=== PATIENT | male | born 1950 | race Caucasian/White ===

== ENCOUNTER 2017-09-25 09:33 | Day surgery (SDC) | payer OTHER ==
[~2017-09-25] VITALS: Ht 177.8 cm; Wt 104.3 kg
[~2017-09-25 09:33] MED LIST: ALBU90OI61 INH; AZIT250 PO; CEPH500 PO; DIPH50 PO; DOXA2 PO; HYDR1TAB94 PO; LEVFLO500 PO; Naprosyn500 MG PO; Norco 5-325 Ta1 EACH PO; PROCODE120 PO; Prednisone20 MG PO
== END 2017-09-25 23:09 | disposition home or self-care (01) ==
LOC: ORSCMMR 09:33
PROVIDERS: Internal Medicine Gastroenterology
PROC: 0DBM8ZX Excision of Descending Colon, Via Natural or Artificial Opening Endoscopic, Diagnostic (ICD-10-PCS; principal; 2017-09-25 11:00)
PROC: 0DBN8ZX Excision of Sigmoid Colon, Via Natural or Artificial Opening Endoscopic, Diagnostic (ICD-10-PCS; principal; 2017-09-25 11:00)
PROC: 0DBK8ZX Excision of Ascending Colon, Via Natural or Artificial Opening Endoscopic, Diagnostic (ICD-10-PCS; principal; 2017-09-25 11:00)
DX: Z12.11 Encounter for screening for malignant neoplasm of colon (principal); D12.2 Benign neoplasm of ascending colon; D12.5 Benign neoplasm of sigmoid colon; K63.5 Polyp of colon; Z86.010 Personal history of colon polyps
CPT/HCPCS: 88305; J7120

== ENCOUNTER 2018-03-24 12:57 | Emergency (ER) | payer OTHER ==
[~2018-03-24] VITALS: Ht 175.3 cm; Wt 100.0 kg
== END 2018-03-24 13:21 | disposition home or self-care (01) ==
LOC: ER 12:57
DX: R20.2 Paresthesia of skin (principal); Z87.891 Personal history of nicotine dependence
CPT/HCPCS: 99283

== ENCOUNTER 2019-04-10 08:28 | Emergency (ER) | payer OTHER ==
[~2019-04-10] VITALS: Ht 172.7 cm; Wt 99.8 kg
[2019-04-10] MEDS ORDERED: Cleocin HCl300 MG PO (11:33)
== END 2019-04-10 11:36 | disposition home or self-care (01) ==
LOC: ER 08:28
DX: J02.9 Acute pharyngitis, unspecified (principal); L03.213 Periorbital cellulitis; Z87.891 Personal history of nicotine dependence
CPT/HCPCS: 87081; 87430; 96374; 99283-25; J1100

== ENCOUNTER 2019-05-24 09:41 | Emergency (ER) | payer OTHER ==
[~2019-05-24] VITALS: Ht 175.3 cm; Wt 97.5 kg
[~2019-05-24 09:41] MED LIST changes: +Cleocin HCl300 MG PO
[2019-05-24] MEDS ORDERED: IBUP400 PO (11:50)
[2019-05-24] MEDS ORDERED: Cyclobenzaprine5 MG PO (11:50)
== END 2019-05-24 11:56 | disposition home or self-care (01) ==
LOC: ER 09:41
DX: M54.2 Cervicalgia (principal); Z87.891 Personal history of nicotine dependence
CPT/HCPCS: 72125; 99283-25

== ENCOUNTER 2019-08-30 12:03 | Emergency (ER) | payer OTHER ==
[~2019-08-30] VITALS: Ht 175.3 cm; Wt 99.8 kg
[~2019-08-30 12:03] MED LIST changes: +Cyclobenzaprine5 MG PO; +IBUP400 PO
[2019-08-30] MEDS ORDERED: DICL75ER PO (13:24)
[2019-08-30] MEDS ORDERED: HYDR1TAB94 PO (13:24)
== END 2019-08-30 13:25 | disposition home or self-care (01) ==
LOC: ER 12:03
DX: M51.36 Other intervertebral disc degeneration, lumbar region (principal)
CPT/HCPCS: 72131; 99283-25

== ENCOUNTER 2020-07-25 12:38 | Emergency (ER) | payer OTHER ==
[~2020-07-25] VITALS: Ht 175.3 cm; Wt 95.2 kg
[~2020-07-25 12:38] MED LIST changes: +DICL75ER PO
== END 2020-07-25 14:38 | disposition home or self-care (01) ==
LOC: ER 12:38
DX: M26.622 Arthralgia of left temporomandibular joint (principal); Z87.891 Personal history of nicotine dependence
CPT/HCPCS: 99282

== ENCOUNTER 2020-09-30 07:51 | Day surgery (SDC) | payer OTHER ==
[~2020-09-30] VITALS: Ht 175.3 cm; Wt 94.4 kg
[~2020-09-30 07:51] MED LIST changes: +ATOR20 PO; +METF500 PO
--- NOTE | 2020-09-30 09:13 | NUR ---
Ambulatory in Day SurgeryPatient states colon prep results clear. History, Chart, Medications and Allergies reviewed before start of procedure.Lungs clear T/O to Auscultation. Patient confirms NPO status and agrees with scheduled surgery. Patient States Post-Procedure ride home has been arranged. ALL BELONINGS PLACED IN SPOT 7 CHAIR. FRIEND TO PROVIDED TRANSPORTAION HOME.
--- NOTE | 2020-09-30 09:32 | NUR ---
09/30/20 0931 Pamela Beverly History, Chart, Medications and Allergies reviewed before start of procedure. Patient confirms NPO status and agrees with scheduled surgery. PATIENT DETERMINED TO BE ASA APPROPRIATE FOR PROPOFOL SEDATION PRIOR TO START OF PROCEDURE BY DR. PERSON. 3-LEAD EKG REVIEWED WITH PHYSICIAN PRIOR TO START OF PROCEDURE. MONITOR INTACT WITH CONTINUOUS PULSE OXIMETRY AND INTERMITTENT BP.
--- NOTE | 2020-09-30 10:44 | NUR ---
Patient up to Ambulate independently. Gait steady. Discharge instructions reviewed with patient. Patient verbalizes understanding. Copy given to patient to take home. Patient States Post-Procedure ride home has been arranged. Discharged via wheelchair to private car for ride home.
== END 2020-09-30 10:33 | disposition home or self-care (01) ==
LOC: ORSCMMR 07:51 → ORD 09:00 → ORSCMMR 09:00
DX: Z86.010 Personal history of colon polyps (principal); D12.2 Benign neoplasm of ascending colon; D12.3 Benign neoplasm of transverse colon; D12.4 Benign neoplasm of descending colon; E11.9 Type 2 diabetes mellitus without complications; Z79.84 Long term (current) use of oral hypoglycemic drugs; E78.00 Pure hypercholesterolemia, unspecified; Z79.899 Other long term (current) drug therapy
CPT/HCPCS: 82947; 88305; J2704; J7120

== ENCOUNTER 2020-10-18 11:37 | Emergency (ER) | payer OTHER ==
[~2020-10-18] VITALS: Ht 175.3 cm; Wt 99.8 kg
[2020-10-18] MEDS ORDERED: Kristalose20 GM PO (12:09)
== END 2020-10-18 12:26 | disposition home or self-care (01) ==
LOC: ER 11:37
DX: K59.00 Constipation, unspecified (principal); K64.4 Residual hemorrhoidal skin tags; Z87.19 Personal history of other diseases of the digestive system; Z79.84 Long term (current) use of oral hypoglycemic drugs; Z79.899 Other long term (current) drug therapy
CPT/HCPCS: 99282

== ENCOUNTER 2021-04-21 09:39 | Day surgery (SDC) | payer OTHER ==
[~2021-04-21] VITALS: Ht 175.3 cm; Wt 93.6 kg
[~2021-04-21 09:39] MED LIST changes: +Kristalose20 GM PO
[2021-04-21] MEDS ORDERED: FLOMAX0.4 MG PO (11:11)
--- NOTE | 2021-04-21 14:30 | NUR ---
04/21/21 1430 Ada Johnson PATIENT POSITIONED IN THE LATERAL POSITION WITH RIGHT SIDE UP. [id number] PADDED, POSITIONED AND SECURED FOR THE PROCEDURE TO BEGIN. FINAL POSITION CLEARED BY THE OR TEAM AND DR. MIKE M.D. Kong JOHNSON, RN
--- NOTE | 2021-04-21 15:47 | NUR ---
04/21/21 1547 DOMINIQUE VAZQUEZ PT UP TO BR AT 1515. PT ABLE TO URINATE W/O DIFF. PT ATTEMPTING TO WANDER. ENCOURAGED PT TO SIT IN RECLINER AND REST. OFFERED STRING CHEESE. ATTEMPTING TO FIND HIM A RIDE HOME. [facility] APPARENTLY DID NOT BRING HIM TO THE FACILITY. ATTEMPTING TO GET [facility] OF "[facility] [employer]" [phone]. NA
== END 2021-04-21 15:59 | disposition home or self-care (01) ==
LOC: ORSCSDS 09:39
PROVIDERS: Surgery
PROC: 0JB70ZZ Excision of Back Subcutaneous Tissue and Fascia, Open Approach (ICD-10-PCS; principal; 2021-04-21 11:30)
DX: D17.1 Benign lipomatous neoplasm of skin and subcutaneous tissue of trunk (principal); E11.9 Type 2 diabetes mellitus without complications; E66.9 Obesity, unspecified; Z68.30 Body mass index [BMI] 30.0-30.9, adult; Z87.891 Personal history of nicotine dependence; Z79.84 Long term (current) use of oral hypoglycemic drugs; Z79.899 Other long term (current) drug therapy
CPT/HCPCS: 82947; 88304; J0690; J1100; J2250; J2405; J2704; J3010; J7120

== ENCOUNTER 2021-04-27 09:34 | Emergency (ER) | payer OTHER ==
[~2021-04-27] VITALS: Ht 175.3 cm; Wt 93.0 kg
[~2021-04-27 09:34] MED LIST changes: +FLOMAX0.4 MG PO
== END 2021-04-27 11:46 | disposition home or self-care (01) ==
LOC: ER 09:34
DX: J02.9 Acute pharyngitis, unspecified (principal); Z20.822 Contact with and (suspected) exposure to COVID-19; Z79.84 Long term (current) use of oral hypoglycemic drugs; Z79.899 Other long term (current) drug therapy; Z87.891 Personal history of nicotine dependence
CPT/HCPCS: 87081; 87430; 99282; J1100

== ENCOUNTER → 2021-05-07 | Outpatient (CLI) | payer OTHER ==
[2021-05-07 14:07] LABS: Microalb/Creat Ratio UR, Rand 8.368 mg/g (0.000-30.000); Microalbumin, Random Urine 15.9 mg/L (0.000-20.000)
== END | disposition home or self-care (01) ==
LOC: LAB SHORT 12:40 → LAB 12:40
PROVIDERS: Family Medicine
DX: E11.69 Type 2 diabetes mellitus with other specified complication (principal)
CPT/HCPCS: 82043; 82570

== ENCOUNTER 2022-01-04 07:08 | Emergency (ER) | payer OTHER ==
[~2022-01-04] VITALS: Ht 175.3 cm; Wt 95.2 kg
== END 2022-01-04 08:20 | disposition home or self-care (01) ==
LOC: ER 07:08
DX: L85.3 Xerosis cutis (principal); E11.9 Type 2 diabetes mellitus without complications; Z79.84 Long term (current) use of oral hypoglycemic drugs; Z87.891 Personal history of nicotine dependence
CPT/HCPCS: 99282

== ENCOUNTER 2022-10-16 06:49 | Emergency (ER) | payer OTHER ==
[~2022-10-16] VITALS: Ht 172.7 cm; Wt 94.8 kg
[2022-10-16 08:23] LABS: BASOPHILS ABSOLUTE AUTO 0.02 K/mm3 (0.00-0.23); BASOPHILS PERCENT AUTO 0 % (0-2); EOSINOPHILS ABSOLUTE AUTO 0.16 K/mm3 (0.00-0.68); EOSINOPHILS PERCENT AUTO 2 % (0-6); Hematocrit 41.8 % (37.0-53.0); Hemoglobin 14.6 g/dL (13.5-17.5); IMMATURE GRAN ABSOLUTE AUTO 0.02 K/mm3 (0.00-0.10); IMMATURE GRAN PERCENT AUTO 0 % (0-1); LYMPHOCYTES ABSOLUTE AUTO 1.35 K/mm3 (0.84-5.20); LYMPHOCYTES PERCENT AUTO 19 % (21-46); MONOCYTES ABSOLUTE AUTO 0.59 K/mm3 (0.16-1.47); MONOCYTES PERCENT AUTO 8 % (4-13); Mean Corpuscular HGB 30.2 pg (26.0-34.0); Mean Corpuscular HGB Conc 34.9 g/dL (31.5-36.5); Mean Corpuscular Volume 87 fL (80-100); Mean Platelet Volume 9.7 fL (9.1-12.4); NEUTROPHILS ABSOLUTE AUTO 4.91 K/mm3 (1.96-9.15); NEUTROPHILS PERCENT AUTO 70 % (41-73); Platelet Count 248 K/mm3 (150-400); RDW Coefficient Variation 12.3 % (11.7-14.2); Red Blood Cell Count 4.83 M/mm3 (4.30-5.90); White Blood Cell Count 7.05 K/mm3 (4.00-11.30)
[2022-10-16 08:34] LABS: Albumin, Blood 3.9 g/dL (3.4-5.0); Albumin/Globulin Ratio 1.1 (0.8-1.8); Bilirubin, Total 0.7 mg/dL (0.1-1.0); Bun/Creatinine Ratio 16.4 (12.0-20.0); Calcium, Blood 9.3 mg/dL (8.5-10.1); Creatinine, Blood 0.79 mg/dL (0.60-1.20); Globulin, Blood 3.6 g/dL (2.2-4.0); Total Protein, Blood 7.5 g/dL (6.4-8.2)
[2022-10-16] MEDS ORDERED: Prednisone20 MG PO (08:56)
== END 2022-10-16 09:17 | disposition home or self-care (01) ==
LOC: ER 06:49
PROVIDERS: Emergency Medicine
DX: L27.1 Localized skin eruption due to drugs and medicaments taken internally (principal); T45.2X5A Adverse effect of vitamins, initial encounter; Z79.899 Other long term (current) drug therapy
CPT/HCPCS: 80053; 85025; J1200; J2930

== ENCOUNTER → 2022-11-09 | Outpatient (CLI) | payer OTHER | END | disposition home or self-care (01) | LOC: LAB SHORT 10:17 → PLD 10:17 | DX: L30.8 Other specified dermatitis (principal) | CPT/HCPCS: 88305; 88312 ==

== ENCOUNTER 2023-04-26 08:30 | Emergency (ER) | payer OTHER ==
[~2023-04-26] VITALS: Ht 175.3 cm; Wt 90.7 kg
[2023-04-26 08:44] VITALS: BP 140/79
== END 2023-04-26 10:39 | disposition home or self-care (01) ==
LOC: ER 08:30
DX: L28.0 Lichen simplex chronicus (principal); Z87.891 Personal history of nicotine dependence
CPT/HCPCS: 99282

== ENCOUNTER 2023-06-02 11:10 | Emergency (ER) | payer OTHER ==
[~2023-06-02] VITALS: Ht 175.3 cm; Wt 90.7 kg
[2023-06-02 11:45] VITALS: BP 133/63
[2023-06-02 12:49] LABS: BASOPHILS ABSOLUTE AUTO 0.02 K/mm3 (0.00-0.23); BASOPHILS PERCENT AUTO 0 % (0-2); EOSINOPHILS ABSOLUTE AUTO 0.01 K/mm3 (0.00-0.68); EOSINOPHILS PERCENT AUTO 0 % (0-6); Hematocrit 43.3 % (37.0-53.0); Hemoglobin 14.5 g/dL (13.5-17.5); IMMATURE GRAN ABSOLUTE AUTO 0.02 K/mm3 (0.00-0.10); IMMATURE GRAN PERCENT AUTO 0 % (0-1); LYMPHOCYTES ABSOLUTE AUTO 1.19 K/mm3 (0.84-5.20); LYMPHOCYTES PERCENT AUTO 23 % (21-46); MONOCYTES ABSOLUTE AUTO 0.71 K/mm3 (0.16-1.47); MONOCYTES PERCENT AUTO 14 % (4-13); Mean Corpuscular HGB 30.3 pg (26.0-34.0); Mean Corpuscular HGB Conc 33.5 g/dL (31.5-36.5); Mean Corpuscular Volume 90 fL (80-100); Mean Platelet Volume 10.4 fL (9.1-12.4); NEUTROPHILS ABSOLUTE AUTO 3.24 K/mm3 (1.96-9.15); NEUTROPHILS PERCENT AUTO 62 % (41-73); Platelet Count 248 K/mm3 (150-400); RDW Coefficient Variation 12.1 % (11.7-14.2); Red Blood Cell Count 4.79 M/mm3 (4.30-5.90); White Blood Cell Count 5.19 K/mm3 (4.00-11.30)
[2023-06-02 12:59] LABS: Bun/Creatinine Ratio 13.9 (12.0-20.0); Calcium, Blood 9.4 mg/dL (8.5-10.1); Creatinine, Blood 1.08 mg/dL (0.60-1.20)
[2023-06-03] MEDS ORDERED: MOME.1TO (00:25)
[2023-06-03] MEDS ORDERED: Triamcinolone A15 G2 TOP (00:25)
[2023-06-03] MEDS ORDERED: CONSTULOSE10 GM/155 (00:25)
[2023-06-03] MEDS ORDERED: TAMSULOSIN HCL0.4 M1 PO (00:27)
== END 2023-06-02 13:22 | disposition home or self-care (01) ==
LOC: ER 11:10
PROVIDERS: Student in an Organized Health Care Education/Training Program
DX: U07.1 COVID-19 (principal); E86.0 Dehydration; Z79.899 Other long term (current) drug therapy; Z79.84 Long term (current) use of oral hypoglycemic drugs; E11.9 Type 2 diabetes mellitus without complications
CPT/HCPCS: 80048; 85025; 99285

== ENCOUNTER 2023-06-02 16:08 | Observation (INO) | payer OTHER ==
[~2023-06-02] VITALS: Ht 175.3 cm; Wt 90.7 kg
[2023-06-02 16:51] LABS: BASOPHILS ABSOLUTE AUTO 0.02 K/mm3 (0.00-0.23); BASOPHILS PERCENT AUTO 0 % (0-2); EOSINOPHILS ABSOLUTE AUTO 0.01 K/mm3 (0.00-0.68); EOSINOPHILS PERCENT AUTO 0 % (0-6); Hematocrit 44.4 % (37.0-53.0); IMMATURE GRAN ABSOLUTE AUTO 0.02 K/mm3 (0.00-0.10); IMMATURE GRAN PERCENT AUTO 0 % (0-1); LYMPHOCYTES ABSOLUTE AUTO 1.83 K/mm3 (0.84-5.20); LYMPHOCYTES PERCENT AUTO 30 % (21-46); MONOCYTES PERCENT AUTO 15 % (4-13); Mean Corpuscular HGB 30.7 pg (26.0-34.0); Mean Corpuscular HGB Conc 33.8 g/dL (31.5-36.5); Mean Corpuscular Volume 91 fL (80-100); Mean Platelet Volume 9.9 fL (9.1-12.4); NEUTROPHILS ABSOLUTE AUTO 3.34 K/mm3 (1.96-9.15); NEUTROPHILS PERCENT AUTO 55 % (41-73); Platelet Count 231 K/mm3 (150-400); RDW Coefficient Variation 12.1 % (11.7-14.2); RDW Standard Deviation 40.7 fL (35.1-46.3); Red Blood Cell Count 4.89 M/mm3 (4.30-5.90); White Blood Cell Count 6.12 K/mm3 (4.00-11.30)
[2023-06-02 16:59] LABS: Albumin, Blood 4.1 g/dL (3.4-5.0); Bilirubin, Total 0.9 mg/dL (0.1-1.0); Bun/Creatinine Ratio 15.1 (12.0-20.0); Calcium, Blood 9.8 mg/dL (8.5-10.1); Creatinine, Blood 1.06 mg/dL (0.60-1.20); Globulin, Blood 4.3 g/dL (2.2-4.0); Potassium, Blood 4.5 mmol/L (3.5-5.5); Total Protein, Blood 8.4 g/dL (6.4-8.2)
[2023-06-02 23:34] VITALS: BP 139/74
[2023-06-03] MEDS ORDERED: Triamcinolone A15 G2 TOP (00:25)
[2023-06-03] MEDS ORDERED: CONSTULOSE10 GM/155 (00:25)
[2023-06-03] MEDS ORDERED: MOME.1TO (00:25)
[2023-06-03] MEDS ORDERED: TAMSULOSIN HCL0.4 M1 PO (00:27)
--- NOTE | 2023-06-03 00:37 | NUR ---
PT ARRIVED ON UNIT FROM ED AT 2335. AOX4, PLEASANT, COOPERATIVE WITH CARE THUS FAR. ADMITTED AFTER SYNCOPAL EPISODE. COVID POSITIVE. HAS NOT TRANSFERRED SINCE ARRIVAL BUT EDUCATED ON NEED TO NOTIFY STAFF FOR ASSISTANCE UPON TRANSFER. PT VOICED UNDERSTANDING. BED ALARM PUT IN PLACE FOR SAFETY. SKIN ASSESSMENT UNREMARKABLE OUTSIDE OF HEMATOMA ABOVE LEFT EYE AND ABRASION ON LEFT HAND, BOTH PRESUMABLY FROM FALL EARLIER IN DAY. PT FORGETFUL ON EVENTS LEADING UP TO ADMISSION BUT IS EASILY REORIENTED. SOME PAIN REPORTED DUE TO TENDONITIS IN R ELBOW. MEDICATED PER EMAR. BED LOCKED IN LOWEST POSITION. CALL LIGHT LEFT WITHIN REACH.
[2023-06-03 05:24] LABS: Hemoglobin 13.1 g/dL (13.5-17.5); Mean Corpuscular HGB 30.7 pg (26.0-34.0); Mean Corpuscular HGB Conc 34.5 g/dL (31.5-36.5); Mean Corpuscular Volume 89 fL (80-100); Mean Platelet Volume 9.9 fL (9.1-12.4); Platelet Count 205 K/mm3 (150-400); RDW Coefficient Variation 12.4 % (11.7-14.2); RDW Standard Deviation 40.5 fL (35.1-46.3); Red Blood Cell Count 4.27 M/mm3 (4.30-5.90); White Blood Cell Count 4.71 K/mm3 (4.00-11.30)
[2023-06-03 05:42] LABS: Calcium, Blood 8.3 mg/dL (8.5-10.1); Creatinine, Blood 0.93 mg/dL (0.60-1.20); Magnesium, Blood 1.9 mg/dL (1.6-2.4); Potassium, Blood 3.4 mmol/L (3.5-5.5)
--- NOTE | 2023-06-03 06:03 | NUR ---
SHIFT SUMMARY. PT WAS ABLE TO SLEEP THROUGH MUCH OF SHIFT AFTER ADMISSION. JUST RECENTLY ARRIVED BACK FROM RADIOLOGY TRANSPORT. PT WAS WALKING INDEPENDENTLY WITHIN ROOM AFTER ARRIVING BACK. REINFORCED IMPORTANCE OF CALLING FOR ASSISTANCE TO WHICH PT VOICED UNDERSTANDING. PUT BED ALARM IN PLACE FOR SAFETY AND REASSURANCE. REMAINS AOX4 ALTHOUGH IS STILL FORGETFUL ON EVENTS THAT LEAD TO ADMISSION. BED LOCKED IN LOWEST POSITION. CALL LIGHT LEFT WITHIN REACH.
[2023-06-03 07:49] VITALS: BP 129/73
[2023-06-03 16:32] VITALS: BP 127/73
--- NOTE | 2023-06-03 17:54 | NUR ---
SHIFT SUMMARY PT A/OX4 WITH SOME CONFUSION/FORGETFULNESS. PT C/O HEADACHE T/O THE DAY. MED WITH TYLENOL. PT RESTLESS AT TIMES. INFUSING FLUIDS AT 75MLS HOUR. PT ABLE TO MAKE NEEDS KNOWN AND CALLS APPROPRIATELY. PT NEURO CHECKS UNREMARKABLE. PT REFUSED INSULIN THIS AM; EDUCATION ON INSULIN AND DMT2. PT AGREEABLE TO INSULIN AT LUNCH AND DINNER. PT HAS BEEN CALLING WHEN UP TO THE BATHROOM AND TO MAKE NEEDS KNOWN. VSS.
[2023-06-03 19:31] VITALS: BP 136/77
[2023-06-04 02:41] VITALS: BP 116/53
[2023-06-04 04:22] LABS: Hematocrit 38.5 % (37.0-53.0); Mean Corpuscular HGB 30.2 pg (26.0-34.0); Mean Corpuscular HGB Conc 33.8 g/dL (31.5-36.5); Mean Corpuscular Volume 90 fL (80-100); Mean Platelet Volume 9.7 fL (9.1-12.4); Platelet Count 198 K/mm3 (150-400); RDW Coefficient Variation 12.4 % (11.7-14.2); White Blood Cell Count 2.92 K/mm3 (4.00-11.30)
[2023-06-04 04:47] LABS: Albumin, Blood 3.3 g/dL (3.4-5.0); Bilirubin, Total 0.6 mg/dL (0.1-1.0); Bun/Creatinine Ratio 17.2 (12.0-20.0); Calcium, Blood 8.4 mg/dL (8.5-10.1); Creatinine, Blood 0.87 mg/dL (0.60-1.20); Globulin, Blood 3.2 g/dL (2.2-4.0); Phosphorus, Blood 3.5 mg/dL (2.5-4.9); Potassium, Blood 3.7 mmol/L (3.5-5.5); Total Protein, Blood 6.5 g/dL (6.4-8.2)
--- NOTE | 2023-06-04 04:54 | NUR ---
CAREY IS AN ALERT AND ORIENTED PATIENT WHO HAS NO IDEA WHY HE WAS FOUND DOWN OR HAD PASSED OUT AND ENDED UP BACK IN THE HOSPITAL. EARLIER IN THE SHIFT, HE WAS QUITE DIFFICULT TO KEEP SAFE HE DIDN'T WANT TO FOLLOW SAFETY COMMANDS. FOLLOWING A CONVERSATION REGARDING RISKS TO HIS SAFETY FROM ANOTHER FALL, AND THE ADDITION OF A CAMERA, THE PATIENT AGREED TO CALL FOR ASSISTANCE OOB. NO EPISODES OF LIGHTHEADEDNESS OR NEAR SYNCOPE OVERNIGHT. TELEMETRY: SR 60- 70'S
[2023-06-04 05:16] LABS: BASOPHILS PERCENT MAN 0 % (0-2); EOSINOPHILS ABSOLUTE MAN 0.11 K/mm3 (0.00-0.68); EOSINOPHILS PERCENT MAN 4 % (0-6); LYMPHOCYTES ABSOLUTE MAN 0.84 K/mm3 (0.84-5.20); LYMPHOCYTES PERCENT MAN 29 % (21-46); MONOCYTES ABSOLUTE MAN 0.37 K/mm3 (0.16-1.47); MONOCYTES PERCENT MAN 13 % (4-13); NEUTROPHILS ABSOLUTE MAN 1.57 K/mm3 (1.96-9.15); SEG NEUTROPHILS PERCENT MAN 54 % (41-73); TOTAL CELLS COUNTED 100
[2023-06-04 07:21] VITALS: BP 127/75
--- NOTE | 2023-06-04 11:08 | NUR ---
DIZZINESS PT C/O OF DIZZINESS AFTER SHOWER. ORTHOSTATIC VS DONE. COMMUNICATED TO DR ROBLES. ORDERS RECEIVED. FLUIDS UP. CONTINUE POC.
[2023-06-04 15:37] VITALS: BP 148/81
--- NOTE | 2023-06-04 17:52 | NUR ---
NOTE PT ALERT AND ORIENTED. HE BECAME DIZZY DURING HIS SHOWER. ORTHOSTAIC VS DONE. DR TAN NOTIFIED. FLUID ORDERS RECEIVED. ADÁN HOSE PLACED ON BLE. PT STATED THAT HIS DIZZINESS IS SLIGHTLY BETTER. IVF INFUSING NS AT 100ML/HR. IV SITE WNL. PT EATING WELL. LEFT EYE SWOLLEN. HE HAS REQUESTED PAIN MEDICATION X1 TODAY. OFFERED AN ICE PACK FOR HIS LEFT EYE. HE REFUSED. PT ON VIDEO. HE HAS BEEN CALLING FOR ASSIST TO GET UP. HE IS HAVING A HARD TIME REMEMBERING HOW HE GOT HERE. COOPERATIVE WIWT CARE. VOIDING PER URINL. BED LOW, LOCKED, SLIPPY SOCKS ON. CALL LIGHT WITH IN REACH. CARE ON GOING.
[2023-06-04 21:55] VITALS: BP 131/76
--- NOTE | 2023-06-05 04:39 | NUR ---
SHIFT SUMMARY: NO ACUTE EVENTS. PT IS SHORT TEMPERED, DID NOT WANT ASSISTANCE TO GET UP TO GO TO THE BR, DID NOT WANT TO USE CALL LIGHT. ORTHOSTATIC VS COMPLETED THIS SHIFT. GAIT IS UNSTEADY. NO EVENTS ON TELEMETRY, SR 70'S. DID NOT WANT TO BE HOOKED UP TO IVF OVERNIGHT. C/O PAIN IN FACE AND NECK; MEDICATED PER EMAR. O2 SATS STABLE ON RA, LUNGS CLEAR.
[2023-06-05 05:14] LABS: BASOPHILS ABSOLUTE AUTO 0.01 K/mm3 (0.00-0.23); BASOPHILS PERCENT AUTO 0 % (0-2); EOSINOPHILS ABSOLUTE AUTO 0.09 K/mm3 (0.00-0.68); EOSINOPHILS PERCENT AUTO 3 % (0-6); Hematocrit 39.1 % (37.0-53.0); Hemoglobin 13.3 g/dL (13.5-17.5); IMMATURE GRAN ABSOLUTE AUTO 0.01 K/mm3 (0.00-0.10); IMMATURE GRAN PERCENT AUTO 0 % (0-1); LYMPHOCYTES ABSOLUTE AUTO 1.05 K/mm3 (0.84-5.20); LYMPHOCYTES PERCENT AUTO 33 % (21-46); MONOCYTES ABSOLUTE AUTO 0.35 K/mm3 (0.16-1.47); MONOCYTES PERCENT AUTO 11 % (4-13); Mean Corpuscular HGB 29.8 pg (26.0-34.0); Mean Corpuscular Volume 88 fL (80-100); Mean Platelet Volume 9.4 fL (9.1-12.4); NEUTROPHILS ABSOLUTE AUTO 1.71 K/mm3 (1.96-9.15); NEUTROPHILS PERCENT AUTO 53 % (41-73); Platelet Count 208 K/mm3 (150-400); RDW Standard Deviation 38.9 fL (35.1-46.3); Red Blood Cell Count 4.46 M/mm3 (4.30-5.90); White Blood Cell Count 3.22 K/mm3 (4.00-11.30)
[2023-06-05 05:53] LABS: Bun/Creatinine Ratio 12.3 (12.0-20.0); Calcium, Blood 8.1 mg/dL (8.5-10.1); Creatinine, Blood 0.73 mg/dL (0.60-1.20); Potassium, Blood 3.7 mmol/L (3.5-5.5)
[2023-06-05 07:48] VITALS: BP 145/85
--- NOTE | 2023-06-05 10:02 | NUR ---
PATIENT A&OX3-4. UNCOOPERATIVE WITH CARE, IRRITABLE. UNABLE TO DEESCALATE PATIENT. HE LEFT AMA AT 0945. AMA FORM REVIEWED AND SIGNED. DR STALLWORTH NOTIFIED.
== END 2023-06-05 09:47 | disposition left against medical advice (07) ==
LOC: ER 16:08 → MEDS 16:09
PROVIDERS: Hospitalist; Nurse Practitioner Acute Care; Student in an Organized Health Care Education/Training Program; ADMIT Student in an Organized Health Care Education/Training Program
DX: R55 Syncope and collapse (principal); S09.90XA Unspecified injury of head, initial encounter; U07.1 COVID-19; E11.9 Type 2 diabetes mellitus without complications; E78.5 Hyperlipidemia, unspecified; N40.0 Benign prostatic hyperplasia without lower urinary tract symptoms; R41.82 Altered mental status, unspecified; E86.0 Dehydration; W18.30XA Fall on same level, unspecified, initial encounter; Y92.410 Unspecified street and highway as the place of occurrence of the external cause
CPT/HCPCS: 36415; 70450; 71045; 80048; 80053; 82947; 83735; 83880; 84100; 84484; 85025; 85027; 93005; 93010; 96374; 96376; 97110; 97161; 99285-25; A9270; G0378; J1885; J7030

== ENCOUNTER 2023-07-03 15:18 | Emergency (ER) | payer OTHER ==
[~2023-07-03] VITALS: Ht 175.3 cm; Wt 88.5 kg
[~2023-07-03 15:18] MED LIST changes: +CONSTULOSE10 GM/155; +MOME.1TO; +TAMSULOSIN HCL0.4 M1 PO; +Triamcinolone A15 G2 TOP
[2023-07-03 15:52] LABS: BASOPHILS ABSOLUTE AUTO 0.02 K/mm3 (0.00-0.23); BASOPHILS PERCENT AUTO 0 % (0-2); EOSINOPHILS PERCENT AUTO 0 % (0-6); Hematocrit 42.7 % (37.0-53.0); Hemoglobin 14.6 g/dL (13.5-17.5); IMMATURE GRAN ABSOLUTE AUTO 0.02 K/mm3 (0.00-0.10); IMMATURE GRAN PERCENT AUTO 0 % (0-1); LYMPHOCYTES ABSOLUTE AUTO 0.87 K/mm3 (0.84-5.20); LYMPHOCYTES PERCENT AUTO 9 % (21-46); MONOCYTES ABSOLUTE AUTO 0.45 K/mm3 (0.16-1.47); MONOCYTES PERCENT AUTO 5 % (4-13); Mean Corpuscular HGB 30.5 pg (26.0-34.0); Mean Corpuscular HGB Conc 34.2 g/dL (31.5-36.5); Mean Corpuscular Volume 89 fL (80-100); NEUTROPHILS ABSOLUTE AUTO 8.46 K/mm3 (1.96-9.15); NEUTROPHILS PERCENT AUTO 86 % (41-73); Platelet Count 271 K/mm3 (150-400); RDW Coefficient Variation 12.5 % (11.7-14.2); RDW Standard Deviation 40.9 fL (35.1-46.3); Red Blood Cell Count 4.79 M/mm3 (4.30-5.90); White Blood Cell Count 9.82 K/mm3 (4.00-11.30)
[2023-07-03 16:12] LABS: Albumin, Blood 4.2 g/dL (3.4-5.0); Bilirubin, Total 0.8 mg/dL (0.1-1.0); Bun/Creatinine Ratio 21.8 (12.0-20.0); Calcium, Blood 9.4 mg/dL (8.5-10.1); Creatinine, Blood 0.87 mg/dL (0.60-1.20); Potassium, Blood 4.4 mmol/L (3.5-5.5); Total Protein, Blood 8.2 g/dL (6.4-8.2)
[2023-07-03] MEDS ORDERED: MECL25 PO (19:25)
[2023-07-03] MEDS ORDERED: LOPE2C PO (19:25)
[2023-07-03] MEDS ORDERED: ONDA4ODT MM (19:25)
[2023-07-03 20:02] VITALS: BP 160/74
== END 2023-07-03 20:04 | disposition home or self-care (01) ==
LOC: ER 15:18
PROVIDERS: Physician Assistant
DX: R11.2 Nausea with vomiting, unspecified (principal); R19.7 Diarrhea, unspecified; E86.0 Dehydration; R42 Dizziness and giddiness; E11.9 Type 2 diabetes mellitus without complications
CPT/HCPCS: 80053; 82947; 85025; 93005; 93010; 96361; 96374; 99284-25; A9270; J2405; J7030

== ENCOUNTER 2024-11-28 07:46 | Observation (INO) | payer OTHER ==
[~2024-11-28] VITALS: Ht 175.3 cm; Wt 91.1 kg
[~2024-11-28 07:46] MED LIST changes: +JARDIANCE10 MG PO; +LOPE2C PO; +MECL25 PO; +OMEP20ER; +ONDA4ODT MM
[2024-11-28] MEDS ORDERED: Meclizine HCl 25 MG Tab PO ONE (08:30)
[2024-11-28 08:50] LABS: BASOPHILS ABSOLUTE AUTO 0.03 K/mm3 (0.00-0.23); BASOPHILS PERCENT AUTO 1 % (0-2); EOSINOPHILS PERCENT AUTO 2 % (0-6); Hematocrit 44.7 % (37.0-53.0); Hemoglobin 14.8 g/dL (13.5-17.5); IMMATURE GRAN ABSOLUTE AUTO 0.02 K/mm3 (0.00-0.10); IMMATURE GRAN PERCENT AUTO 0 % (0-1); LYMPHOCYTES ABSOLUTE AUTO 1.21 K/mm3 (0.84-5.20); LYMPHOCYTES PERCENT AUTO 19 % (21-46); MONOCYTES ABSOLUTE AUTO 0.51 K/mm3 (0.16-1.47); MONOCYTES PERCENT AUTO 8 % (4-13); Mean Corpuscular HGB 29.1 pg (26.0-34.0); Mean Corpuscular HGB Conc 33.1 g/dL (31.5-36.5); Mean Corpuscular Volume 88 fL (80-100); Mean Platelet Volume 9.6 fL (9.1-12.4); NEUTROPHILS ABSOLUTE AUTO 4.56 K/mm3 (1.96-9.15); NEUTROPHILS PERCENT AUTO 71 % (41-73); Platelet Count 253 K/mm3 (150-400); RDW Coefficient Variation 12.2 % (11.7-14.2); RDW Standard Deviation 39.4 fL (35.1-46.3); Red Blood Cell Count 5.08 M/mm3 (4.30-5.90); White Blood Cell Count 6.43 K/mm3 (4.00-11.30)
[2024-11-28 09:02] LABS: Bun/Creatinine Ratio 25.7 (12.0-20.0); Calcium, Blood 8.6 mg/dL (8.5-10.1); Creatinine, Blood 0.9 mg/dL (0.60-1.20); Magnesium, Blood 1.9 mg/dL (1.6-2.4); Potassium, Blood 3.8 mmol/L (3.5-5.5)
[2024-11-28] MEDS ORDERED: FLU VACC TS2024-25(6MOS UP)/PF 45 MCG/0.5 ML SYRINGE IM PRN (10:10)
[2024-11-28] MEDS ORDERED: Meclizine HCl 25 MG Tab PO PRN (10:15)
[2024-11-28] MEDS ORDERED: Insulin Regular 100 UNIT/ML 10ML Vial SC SCH (11:30)
[2024-11-28] MEDS ORDERED: Aspirin 325 MG Tab PO ONE (11:50)
[2024-11-28 15:26] LABS: CHOL/HDL RATIO 2.5; Cholesterol 118 mg/dL (50-200); HDL Cholesterol 47 mg/dL (>39); LDL/HDL RATIO 1.1; Low Density Lipoprotein Chol 51 mg/dL (0-110); Triglycerides 100 mg/dL (30-160); Very Low Density Lipoprot Chol 20 mg/dL (6-32)
[2024-11-28 15:48] VITALS: BP 129/74
--- NOTE | 2024-11-28 18:19 | NUR ---
SHIFT SUMMARY PT A&OX4, VSS, AMB W/ SBA, TOLERATING PO, VOIDING, AND DENIED PAIN. PT ADMITS TO DIZZINESS W/ HEAD MOVEMENT AND DURING AMBULATION, DENIES N/V, N/T, AND OR VISUAL CHANGES. CALL LIGHT WITHIN REACH AND PT ABLE TO MAKE NEEDS KNOWN.
[2024-11-28 20:47] VITALS: BP 119/60
[2024-11-29 00:42] VITALS: BP 111/58
[2024-11-29 04:33] VITALS: BP 118/79
[2024-11-29 04:50] LABS: BASOPHILS ABSOLUTE AUTO 0.03 K/mm3 (0.00-0.23); BASOPHILS PERCENT AUTO 1 % (0-2); EOSINOPHILS ABSOLUTE AUTO 0.15 K/mm3 (0.00-0.68); EOSINOPHILS PERCENT AUTO 2 % (0-6); Hematocrit 43.7 % (37.0-53.0); Hemoglobin 14.8 g/dL (13.5-17.5); IMMATURE GRAN ABSOLUTE AUTO 0.02 K/mm3 (0.00-0.10); IMMATURE GRAN PERCENT AUTO 0 % (0-1); LYMPHOCYTES ABSOLUTE AUTO 1.65 K/mm3 (0.84-5.20); LYMPHOCYTES PERCENT AUTO 26 % (21-46); MONOCYTES ABSOLUTE AUTO 0.69 K/mm3 (0.16-1.47); MONOCYTES PERCENT AUTO 11 % (4-13); Mean Corpuscular HGB Conc 33.9 g/dL (31.5-36.5); Mean Corpuscular Volume 89 fL (80-100); Mean Platelet Volume 9.3 fL (9.1-12.4); NEUTROPHILS ABSOLUTE AUTO 3.75 K/mm3 (1.96-9.15); NEUTROPHILS PERCENT AUTO 60 % (41-73); Platelet Count 241 K/mm3 (150-400); RDW Coefficient Variation 12.4 % (11.7-14.2); RDW Standard Deviation 40.1 fL (35.1-46.3); Red Blood Cell Count 4.94 M/mm3 (4.30-5.90); White Blood Cell Count 6.29 K/mm3 (4.00-11.30)
--- NOTE | 2024-11-29 05:14 | NUR ---
SHIFT SUMMARY PT IS ADMITTED FOR POSSIBLE VERTIGO SYMPTOMS. . PT IS ALERT AND ORIENTED TIMES 4. PT IS BASELINE ROOM AIR, TELE SINUS RHYTHM 80. PT HAS AC/HS BLOODSUGAR. WITH HX chronic lower back pain, cholosectomy. PT DENIES FEVER,CHILLS, NAUSEA, VOMITING, AND PAIN. PT RECEPTIVE TO CARE. BED IN LOW POSITION, RAILS TIMES TWO, CALL LIGHT WITHIN REACH.
[2024-11-29 05:16] LABS: Bun/Creatinine Ratio 26.8 (12.0-20.0); Calcium, Blood 8.6 mg/dL (8.5-10.1); Creatinine, Blood 0.82 mg/dL (0.60-1.20); Potassium, Blood 3.8 mmol/L (3.5-5.5)
[2024-11-29 07:23] VITALS: BP 146/83
[2024-11-29] MEDS ORDERED: Enoxaparin 40 MG/0.4 ML SYR SC SCH (09:00)
[2024-11-29] MEDS ORDERED: MECL25 PO (11:47)
--- NOTE | 2024-11-29 12:30 | NUR ---
1230 DISCAHRGED HOME, TRANSPORTATION SCHEDULED, PATIENT ALERT AND OREINTED BUT IS FORGETFUL. DISCHARGE INSTRUCTIONS GIVEN TO PATIENT, PATIENT STATED UNDERSTANDING OF MEDICATION, PHYSICAL THERAPY, AND FOLLOW UP. PATIENT DENIED FURTHER QUESTIONS, DENIES FURTHER NEEDS
== END 2024-11-29 12:22 | disposition home or self-care (01) ==
LOC: ER 07:46 → ERHOLD 07:47 → MEDS 15:28 → ENPENDDIS 11-29 11:44 → MEDS 11-29 12:22
PROVIDERS: Emergency Medicine; ADMIT Family Medicine
DX: H81.10 Benign paroxysmal vertigo, unspecified ear (principal); E11.9 Type 2 diabetes mellitus without complications; E78.5 Hyperlipidemia, unspecified; N40.0 Benign prostatic hyperplasia without lower urinary tract symptoms; H91.92 Unspecified hearing loss, left ear; H93.12 Tinnitus, left ear; G89.29 Other chronic pain; M54.50 Low back pain, unspecified; I35.0 Nonrheumatic aortic (valve) stenosis; I10 Essential (primary) hypertension; Z66 Do not resuscitate; Z87.891 Personal history of nicotine dependence; Z79.84 Long term (current) use of oral hypoglycemic drugs; Z79.899 Other long term (current) drug therapy; W18.30XA Fall on same level, unspecified, initial encounter
CPT/HCPCS: 36415; 70450; 70551; 71045; 80048; 80061; 82947; 83735; 85025; 93005; 93010; 93306; 93880; 96372; 97162; 97530; 99285-25; A9270; G0378; J1650

== ENCOUNTER 2025-03-04 08:05 | Day surgery (SDC) | payer OTHER ==
[~2025-03-04] VITALS: Ht 175.3 cm; Wt 97.5 kg
[2025-03-04] MEDS ORDERED: RYBELSUS3 MG (08:33)
[2025-03-04 10:12] VITALS: BP 119/73
== END 2025-03-04 10:24 | disposition home or self-care (01) ==
LOC: ORSCSDS 08:05
PROVIDERS: Internal Medicine Gastroenterology
PROC: 0DJ08ZZ Inspection of Upper Intestinal Tract, Via Natural or Artificial Opening Endoscopic (ICD-10-PCS; principal; 2025-03-04 09:45)
DX: R13.10 Dysphagia, unspecified (principal); E11.51 Type 2 diabetes mellitus with diabetic peripheral angiopathy without gangrene; E78.5 Hyperlipidemia, unspecified; Z87.891 Personal history of nicotine dependence; Z79.84 Long term (current) use of oral hypoglycemic drugs; Z79.899 Other long term (current) drug therapy
CPT/HCPCS: 82947; J2704; J7120